=== PATIENT | male | born 1970 | race Asian ===

== ENCOUNTER 2019-01-01 13:01 | Outpatient (CLI) | payer OTHER | END 2019-01-01 14:45 | disposition home or self-care (01) | LOC: SRD 13:01 | PROVIDERS: ATTEND Internal Medicine | DX: S83.207A Unspecified tear of unspecified meniscus, current injury, left knee, initial encounter (principal); M22.42 Chondromalacia patellae, left knee; X58.XXXA Exposure to other specified factors, initial encounter; Y93.89 Activity, other specified; Y92.89 Other specified places as the place of occurrence of the external cause; Y99.8 Other external cause status | CPT/HCPCS: 73721 ==

== ENCOUNTER 2019-01-06 11:20 | Outpatient (CLI) | payer OTHER ==
[2019-01-06 12:34] LABS: BASOPHILS # (AUTO) 0.1 K/uL (0.0-0.2); BASOPHILS % (AUTO) 1.2 % (0.0-2.0); EOSINOPHILS # (AUTO) 0.2 K/uL (0.0-0.4); EOSINOPHILS % (AUTO) 4.8 % (0.0-4.0); HEMATOCRIT 46.7 % (36-54); HEMOGLOBIN 15.8 g/dL (14.0-18.0); LYMPHOCYTES # (AUTO) 1.6 K/uL (1.0-5.5); LYMPHOCYTES % (AUTO) 36.7 % (20.5-51.5); MEAN CORPUSCULAR HEMOGLOBIN 33 pg (27-31); MEAN CORPUSCULAR HGB CONC 34 % (32-36); MEAN CORPUSCULAR VOLUME 97 fL (79.0-98.0); MONOCYTES # (AUTO) 0.4 K/uL (0.0-1.0); MONOCYTES % (AUTO) 9.2 % (1.7-9.3); NEUTROPHILS # (AUTO) 2.1 K/uL (1.8-7.7); NEUTROPHILS % (AUTO) 48.1 % (40.0-70.0); PLATELET COUNT (AUTO) 185 K/uL (130-430); RED BLOOD CELL COUNT(AUTO) 4.82 MIL/uL (4.2-6.2); RED CELL DISTRIBUTION WIDTH 13.5 % (9.0-15.0); WHITE BLOOD COUNT (AUTO) 4.3 K/uL (4.8-10.8)
[2019-01-06 12:50] LABS: CALCIUM 9.2 mg/dL (8.4-11.0); CREATININE 0.86 mg/dL (0.55-1.30)
[2019-01-06 13:09] LABS: TOTAL BILIRUBIN 1.1 mg/dL (0.0-1.0)
[2019-01-06 13:10] LABS: ALBUMIN 4.1 g/dL (3.4-4.8); THYROID STIMULATING HORMONE 1.66 uIu/mL (0.34-4.82); URIC ACID 7.1 mg/dL (2.4-7.0)
[2019-01-07 10:30] LABS: HEMOGLOBIN A1C 5.8 % (4.8-5.6)
== END 2019-01-06 20:21 | disposition home or self-care (01) ==
LOC: SLB 11:20
PROVIDERS: ATTEND Internal Medicine
DX: Z00.00 Encounter for general adult medical examination without abnormal findings (principal)
CPT/HCPCS: 36415; 80053; 80061; 82306; 82607; 83036; 84443-TC; 84550-TC; 85025

== ENCOUNTER 2020-04-24 11:10 | Emergency (ER) | payer OTHER, SELFPAY ==
[~2020-04-24] VITALS: Ht 162.6 cm; Wt 87.1 kg
[2020-04-24 11:10] VITALS: BP_SYST 127
== END 2020-04-24 12:35 | disposition home or self-care (01) ==
LOC: SED 11:10
DX: B34.9 Viral infection, unspecified (principal); Z20.828 Contact with and (suspected) exposure to other viral communicable diseases
CPT/HCPCS: 99283; C9803; U0003